=== PATIENT | male | born 1960 | race Caucasian/White ===

== ENCOUNTER 2021-10-16 20:17 | Emergency (ER) | payer BC ==
[~2021-10-16] VITALS: Ht 175.3 cm; Wt 77.1 kg
[2021-10-16 20:52] VITALS: BP_SYST 131
--- NOTE | 2021-10-16 22:20 | NUR ---
Placed in hallway chair for examine.
--- NOTE | 2021-10-16 22:21 | NUR ---
patient brought in complaining of intermittent dizziness and headache x 1 month. denies any trauma. no acute distress. denies any pain
--- NOTE | 2021-10-16 22:24 | NUR ---
ER at bedside examining patient.
[2021-10-16] MEDS ORDERED: IBUPROFEN 600 MG TABLET PO ONE (22:30)
[2021-10-16] MEDS ORDERED: methocarbamoL 500 MG TABLET PO ONE (22:30)
[2021-10-16 23:06] LABS: BASOPHILS % (AUTO) 0.4 % (0.0-2.0); EOSINOPHILS # (AUTO) 0.1 K/uL (0.0-0.4); EOSINOPHILS % (AUTO) 1.1 % (0.0-4.0); HEMATOCRIT 40.8 % (36-54); HEMOGLOBIN 14.4 g/dL (14.0-18.0); LYMPHOCYTES # (AUTO) 2.1 K/uL (1.0-5.5); LYMPHOCYTES % (AUTO) 30.5 % (20.5-51.5); MEAN CORPUSCULAR HEMOGLOBIN 33 pg (27-31); MEAN CORPUSCULAR HGB CONC 35 % (32-36); MEAN CORPUSCULAR VOLUME 92 fL (79.0-98.0); MONOCYTES # (AUTO) 0.6 K/uL (0.0-1.0); MONOCYTES % (AUTO) 8.7 % (1.7-9.3); NEUTROPHILS % (AUTO) 59.3 % (40.0-70.0); PLATELET COUNT (AUTO) 203 K/uL (130-430); RED BLOOD CELL COUNT(AUTO) 4.41 MIL/uL (4.2-6.2); RED CELL DISTRIBUTION WIDTH 13.4 % (9.0-15.0); WHITE BLOOD COUNT (AUTO) 6.8 K/uL (4.8-10.8)
[2021-10-16 23:13] LABS: ANION GAP 7 (5-15); CALCIUM 9.1 mg/dL (8.4-11.0); CHLORIDE 101 mmol/L (98-107); CREATININE 1.13 mg/dL (0.55-1.30); GLUCOSE 248 mg/dL (70-99); SODIUM SERUM 136 mmol/L (136-145); UREA NITROGEN, BLOOD 17 mg/dL (8-21)
[2021-10-16 23:22] LABS: ALANINE AMINOTRANSFERASE 84 U/L (12-78); ALBUMIN 3.9 g/dL (3.4-4.8); ASPARTATE AMINOTRANSFERASE 22 U/L (10-37); TOTAL BILIRUBIN 0.3 mg/dL (0.0-1.0)
[2021-10-16 23:24] LABS: GFR AFRICAN AMERICAN 85 mL/min (>90)
[2021-10-16] MEDS ORDERED: IBUP-1969 PO (23:37)
[2021-10-16] MEDS ORDERED: METH-634 PO (23:37)
[2021-10-16] MEDS ORDERED: LIDO1ADH14 TP (23:37)
[2021-10-16 23:59] VITALS: BP_SYST 126
--- NOTE | 2021-10-16 23:59 | NUR ---
Patient given written and verbal discharge instructions and verbalizes understanding. ER MD discussed with patient the results and treatment provided. Patient in stable condition. ID arm band removed. Rx of lidocaine patch, ibuprofen and robaxin given. Patient educated on pain management and to follow up with PMD. Pain Scale 0/10 Opportunity for questions provided and answered. Medication side effect fact sheet provided.
== END 2021-10-16 23:59 | disposition home or self-care (01) ==
LOC: SED 20:17
DX: R51.9 Headache, unspecified (principal); R73.09 Other abnormal glucose; Z79.899 Other long term (current) drug therapy
CPT/HCPCS: 36415; 70450-TC; 76376; 80053; 84484; 85025; 99284